=== PATIENT | male | born 1995 | race Caucasian/White ===

== ENCOUNTER 2018-12-23 01:40 | Emergency (ER) | payer OTHER ==
[2018-12-23] MEDS ORDERED: HYDROCODONE/APAP (10/325) TAB PO (02:30)
[2018-12-23] MEDS ORDERED: BACITRACIN 0.5%/ZINC 28.35 GM OINT TOP (02:30)
[2018-12-23] MEDS: ONDANSETRON (ODT) 4 MG TAB ODT (02:34)
[2018-12-23] MEDS: DIPHTH/TET/ACEL PERTUSS (ADULT) 0.5 ML VIAL IM* (02:34)
[2018-12-23] MEDS: BACITRACIN 0.5%/ZINC 28.35 GM OINT TOP (02:57)
[2018-12-23] MEDS: ACETAMINOPHEN 325 MG TAB PO (03:10)
[2018-12-23] MEDS: LIDOCAINE 1% (MDV) 20 ML INJ SC (03:16)
== END 2018-12-23 03:15 | disposition home or self-care (01) ==
LOC: FTE 01:40
DX: S01.01XA Laceration without foreign body of scalp, initial encounter (principal); W20.8XXA Other cause of strike by thrown, projected or falling object, initial encounter; Y92.89 Other specified places as the place of occurrence of the external cause
CPT/HCPCS: 12001; 70450; 90471; 90715; 99284-25